=== PATIENT | male | born 1965 | race Caucasian/White ===

== ENCOUNTER 2016-07-28 09:47 | Emergency (ER) | payer MEDICAID ==
[2015-09-13 11:06] VITALS: BMI 24.4
[~2016-07-28 09:47] MED LIST: LIBRIUM25 MG PO; TOPROL XL25 MG PO; VITAMIN B-1100 M1 PO
== END 2016-07-28 10:55 | disposition home or self-care (01) ==
LOC: D.ER 09:47
DX: L71.9 Rosacea, unspecified (principal); L21.9 Seborrheic dermatitis, unspecified; R25.1 Tremor, unspecified; F41.9 Anxiety disorder, unspecified

== ENCOUNTER → 2016-11-14 12:27 | Outpatient (CLI) | payer MEDICAID ==
[2015-09-13 11:06] VITALS: BMI 24.4
== END | disposition home or self-care (01) ==
LOC: D.CT 12:27
DX: R26.9 Unspecified abnormalities of gait and mobility (principal)

== ENCOUNTER → 2016-11-29 08:07 | Outpatient (CLI) | payer MEDICAID ==
[2015-09-13 11:06] VITALS: BMI 24.4
== END | disposition home or self-care (01) ==
LOC: D.US 08:00
DX: R94.5 Abnormal results of liver function studies (principal)

== ENCOUNTER 2017-02-20 10:36 | Emergency (ER) | payer MEDICAID ==
[2015-09-13 11:06] VITALS: BMI 24.4
[2017-02-20 11:20] LABS: BASOPHILS 0.2 % (0-2); EOSINOPHILS 0.2 % (0-7); HEMATOCRIT 43.6 % (42.0-54.0); HEMOGLOBIN 15.3 g/dL (13.5-17.5); IMMATURE GRANULOCYTES 0.2 % (0-5); LYMPHOCYTES 7.4 % (15-50); MCH 36.1 pg (26.0-34.0); MCHC 35.1 g/dL (31.0-37.0); MCV 102.8 fL (80.0-100.0); MEAN PLATELET VOLUME 10.4 fL (7.4-10.4); MONOCYTES 11.8 % (2-11); NEUTROPHILS 80.2 % (40-80); RBC 4.24 10x6/uL (4.20-6.10); RDW 12.4 % (11.5-14.5); WBC 5.7 10x3/uL (4.8-10.8)
[2017-02-20 11:21] LABS: PLATELET COUNT 82 10x3/uL (130-400)
[2017-02-20 11:33] LABS: ALBUMIN 4.1 g/dL (3.4-5.0); ALKALINE PHOSPHATASE 105 U/L (46-116); ALT (SGPT) 94 U/L (10-68); AMYLASE - SERUM 43 U/L (25-115); BILIRUBIN - TOTAL 1.53 mg/dL (0.2-1.3); CALC OSMOLALITY 268 mosm/kg (275-300); CALCIUM 9.9 mg/dL (8.5-10.1); CARBON DIOXIDE 27.8 mmol/L (21.0-32.0); CHLORIDE - SERUM 96 mmol/L (98-107); CREATININE - SERUM 0.9 mg/dL (0.6-1.3); GLUCOSE 139 mg/dL (74-106); LIPASE 244 U/L (73-393); MAGNESIUM - SERUM 1.9 mg/dL (1.8-2.4); POTASSIUM - SERUM 4.1 mmol/L (3.5-5.1); PROTEIN - SERUM 7.8 g/dL (6.4-8.2); SODIUM 134 mmol/L (136-145); UREA NITROGEN 9 mg/dL (7-18); eGFR NON AFRICAN AMERICAN > 90 mL/min (90-120)
[2017-02-20 12:25] LABS: PLATELET ESTIMATE DECREASED
[2017-02-20 12:49] LABS: UDS - AMPHET NEGATIVE QUAL (NEGATIVE); UDS - BARB NEGATIVE QUAL (NEGATIVE); UDS - BENZO NEGATIVE QUAL (NEGATIVE); UDS - COCAINE NEGATIVE QUAL (NEGATIVE); UDS - OPIATE NEGATIVE QUAL (NEGATIVE); UDS - PCP NEGATIVE QUAL (NEGATIVE); UDS - THC NEGATIVE QUAL (NEGATIVE)
[2017-02-20 13:03] LABS: APPEARANCE CLEAR (CLEAR); BACTERIA FEW /hpf (NONE SEEN); BILIRUBIN NEGATIVE (NEGATIVE); COLOR DK YELLOW (YELLOW); EPITHELIAL CELLS OCC /hpf (0-5); GLUCOSE NEGATIVE (NEGATIVE); HYALINE CAST 0-5 /lpf (NONE SEEN); KETONE MODERATE mg/dL (NEGATIVE); MUCUS <1+ /lpf (NONE SEEN); NITRITE NEGATIVE (NEGATIVE); PROTEIN NEGATIVE (NEGATIVE); RED CELLS - URINE RARE /hpf (0-5); WHITE CELLS - URINE RARE /hpf (0-5)
== END 2017-02-20 14:50 | disposition home or self-care (01) ==
LOC: D.ER 10:36
PROVIDERS: Family Medicine
DX: F10.10 Alcohol abuse, uncomplicated (principal); F10.231 Alcohol dependence with withdrawal delirium; F17.200 Nicotine dependence, unspecified, uncomplicated

== ENCOUNTER 2017-09-23 23:42 | Emergency (ER) | payer MEDICAID ==
[2015-09-13 11:06] VITALS: BMI 24.4
[2017-09-24 00:49] LABS: BASOPHILS 0.1 % (0-2); EOSINOPHILS 0 % (0-7); HEMATOCRIT 42.4 % (42.0-54.0); HEMOGLOBIN 15.2 g/dL (13.5-17.5); IMMATURE GRANULOCYTES 0.4 % (0-5); LYMPHOCYTES 3.4 % (15-50); MCH 35.4 pg (26.0-34.0); MCHC 35.8 g/dL (31.0-37.0); MCV 98.8 fL (80.0-100.0); MEAN PLATELET VOLUME 11.6 fL (7.4-10.4); MONOCYTES 8.7 % (2-11); NEUTROPHILS 87.4 % (40-80); RBC 4.29 10x6/uL (4.20-6.10); RDW 13.6 % (11.5-14.5); WBC 7.6 10x3/uL (4.8-10.8)
[2017-09-24 01:00] LABS: PLATELET COUNT 49 10x3/uL (130-400)
[2017-09-24 01:08] LABS: ALKALINE PHOSPHATASE 87 U/L (46-116); ALT (SGPT) 118 U/L (10-68); AMYLASE - SERUM 39 U/L (25-115); BILIRUBIN - TOTAL 1.44 mg/dL (0.2-1.3); CALC OSMOLALITY 271 mosm/kg (275-300); CALCIUM 9.8 mg/dL (8.5-10.1); CARBON DIOXIDE 23.7 mmol/L (21.0-32.0); CHLORIDE - SERUM 94 mmol/L (98-107); CREATININE - SERUM 1.1 mg/dL (0.6-1.3); LIPASE 280 U/L (73-393); POTASSIUM - SERUM 3.6 mmol/L (3.5-5.1); PROTEIN - SERUM 7.8 g/dL (6.4-8.2); SODIUM 134 mmol/L (136-145); UREA NITROGEN 11 mg/dL (7-18); eGFR NON AFRICAN AMERICAN 75 mL/min (90-120)
[2017-09-24 01:12] LABS: GLUCOSE 191 mg/dL (74-106)
== END 2017-09-24 02:07 | disposition home or self-care (01) ==
LOC: D.ER 23:42
PROVIDERS: Family Medicine; Physician Assistant Medical
DX: F10.10 Alcohol abuse, uncomplicated (principal)

== ENCOUNTER → 2017-11-13 08:22 | Outpatient (CLI) | payer MEDICAID ==
[2015-09-13 11:06] VITALS: BMI 24.4
[~2017-11-13 08:22] MED LIST changes: +FOLIC ACID1 MG PO; +NICODERM C1 PATCH .1 TRANSDERM; +NIZORAL 2 % CRE15 GM TOPICAL; +PAROXETINE HCL10 MG PO
== END | disposition home or self-care (01) ==
LOC: D.US 08:22
DX: R94.5 Abnormal results of liver function studies (principal)

== ENCOUNTER 2017-11-27 08:50 | Inpatient (IN) | payer MEDICAID ==
[~2017-11-27] VITALS: Ht 185.4 cm; Wt 80.0 kg
[2017-11-27] VITALS (7 sets, daily range): BP systolic 144–165; BP diastolic 83–104
--- NOTE | ~2017-11-27 | CN ---
PATIENT NAME:NOEMI JONES MEDICAL RECORD: [id number] : 67 LOCATION:D. D.[id number] ADMIT DATE: 11/27/17 ACCOUNT: [id number] CONSULTING PHYSICIAN: JESSENIA ALATORRE MD REFERRING PHYSICIAN: SAM CINTRON MD DATE OF CONSULTATION: 11/30/2017 PSYCHIATRIC CONSULTATION IDENTIFYING DATA: The patient is 52 years old and he is admitted to the hospital on a voluntary basis. CHIEF COMPLAINT: None. HISTORY OF PRESENT ILLNESS: The patient currently is in the intensive care unit, delirious. He has a fluctuating level of consciousness, autonomic instability and apparently has told the staff that he drinks about a 6-pack of beer a day, but he clearly is in full-fledged autonomic hypersensitivity consistent with alcohol withdrawal delirium. His parents happened to be in the room when I see him. They are elderly and a very kind and obviously just concerned about their son, but they say that he is not drinking or is not drinking very much, which I think is just absolutely incorrect. I suspect it would be very to deceive them and all of his symptoms are consistent with a delirium, it has to be related to alcohol or sedative hypnotic withdrawal and the likely culprit is alcohol since he has a long history of alcoholism. The parents are concerned about longstanding lifelong issues with him having anger and difficulty adjusting and all sorts of long term care pharmacist problems that are certainly important, but the primary focus at this point is the alcohol withdrawal delirium, which needs to be addressed in addition to referring him to an appropriate setting once he is stabilized here. He has been to [facility] that would seem like a reasonable place for him to go once he is stabilized. MENTAL STATUS EXAMINATION: The patient is awake, alert, but not oriented. He thinks he is at home. He thinks the year is 1990, the month is June and the day is Monday. He does not understand that he is in the hospital. He says he may be drank 1 beer a week ago, but he is not sure. Memory, concentration, and abstraction testing was not possible because of his condition, but based on circumstances, it can be inferred to be severely impaired. ASSESSMENT: 1. Alcohol withdrawal delirium. 2. Alcoholism. PLAN: At this time, the patient needs to be treated supportively with substantial doses of benzodiazepine and antipsychotic medication. I will make some adjustments to the current medications he is receiving. Once medically stabilized, referral to inpatient residential alcohol treatment would be indicated. TRANSINT:[id number] Voice Confirmation ID: [id number] DOCUMENT ID: [id number] CONSULT REPORT [id number] NOEMI JONES PETER MD at 1223 CC: [id number] DICTATION DATE: 11/30/17 1439 SAMPLE DISPLAY PREPARER: 11/30/17 1505 [place] [address]
[~2017-11-27 08:50] MED LIST changes: -FOLIC ACID1 MG PO; -NICODERM C1 PATCH .1 TRANSDERM; -NIZORAL 2 % CRE15 GM TOPICAL; -PAROXETINE HCL10 MG PO
[2017-11-27 09:07] LABS: BASOPHILS 0.2 % (0-2); EOSINOPHILS 0.2 % (0-7); HEMATOCRIT 42.2 % (42.0-54.0); IMMATURE GRANULOCYTES 0.2 % (0-5); LYMPHOCYTES 17.4 % (15-50); MCH 35.9 pg (26.0-34.0); MCHC 35.5 g/dL (31.0-37.0); MEAN PLATELET VOLUME 11.4 fL (7.4-10.4); MONOCYTES 10.9 % (2-11); NEUTROPHILS 71.1 % (40-80); RBC 4.18 10x6/uL (4.20-6.10); RDW 12.8 % (11.5-14.5); WBC 5.7 10x3/uL (4.8-10.8)
[2017-11-27 09:08] LABS: PLATELET COUNT 59 10x3/uL (130-400)
[2017-11-27] MEDS ORDERED: FOLIC ACID1 MG PO (09:10)
[2017-11-27] MEDS ORDERED: PAROXETINE HCL10 MG PO (09:10)
[2017-11-27 09:32] LABS: ALBUMIN 4.3 g/dL (3.4-5.0); ALKALINE PHOSPHATASE 113 U/L (46-116); ALT (SGPT) 107 U/L (10-68); BILIRUBIN - TOTAL 1.23 mg/dL (0.2-1.3); CALC OSMOLALITY 270 mosm/kg (275-300); CALCIUM 9.8 mg/dL (8.5-10.1); CARBON DIOXIDE 20.3 mmol/L (21.0-32.0); CHLORIDE - SERUM 92 mmol/L (98-107); CREATININE - SERUM 0.9 mg/dL (0.6-1.3); POTASSIUM - SERUM 3.4 mmol/L (3.5-5.1); PROTEIN - SERUM 8.1 g/dL (6.4-8.2); SODIUM 136 mmol/L (136-145); UREA NITROGEN 6 mg/dL (7-18); eGFR NON AFRICAN AMERICAN > 90 mL/min (90-120)
[2017-11-27 09:33] LABS: GLUCOSE 121 mg/dL (74-106)
[2017-11-27 09:58] LABS: PLATELET ESTIMATE DECREASED
[2017-11-28] VITALS (20 sets, daily range): BP systolic 115–151; BP diastolic 70–94; BMI 22.6
[2017-11-28 06:18] LABS: BASOPHILS 0.2 % (0-2); HEMATOCRIT 41.6 % (42.0-54.0); HEMOGLOBIN 14.6 g/dL (13.5-17.5); IMMATURE GRANULOCYTES 0.2 % (0-5); LYMPHOCYTES 10.7 % (15-50); MCH 35.7 pg (26.0-34.0); MCHC 35.1 g/dL (31.0-37.0); MCV 101.7 fL (80.0-100.0); MEAN PLATELET VOLUME 12.5 fL (7.4-10.4); MONOCYTES 11.8 % (2-11); NEUTROPHILS 76.1 % (40-80); RBC 4.09 10x6/uL (4.20-6.10); RDW 12.8 % (11.5-14.5); WBC 4.8 10x3/uL (4.8-10.8)
[2017-11-28 06:19] LABS: PLATELET COUNT 44 10x3/uL (130-400)
[2017-11-28 06:35] LABS: ALBUMIN 3.8 g/dL (3.4-5.0); ALKALINE PHOSPHATASE 100 U/L (46-116); ALT (SGPT) 86 U/L (10-68); BILIRUBIN - TOTAL 1.79 mg/dL (0.2-1.3); CALCIUM 8.5 mg/dL (8.5-10.1); CHLORIDE - SERUM 96 mmol/L (98-107); MAGNESIUM - SERUM 2.5 mg/dL (1.8-2.4); PHOSPHOROUS 3.2 mg/dL (2.5-4.9); POTASSIUM - SERUM 3.1 mmol/L (3.5-5.1); PROTEIN - SERUM 7.1 g/dL (6.4-8.2); SODIUM 135 mmol/L (136-145)
[2017-11-28 06:37] LABS: CALC OSMOLALITY 264 mosm/kg (275-300); CREATININE - SERUM 0.6 mg/dL (0.6-1.3); GLUCOSE 62 mg/dL (74-106); UREA NITROGEN 4 mg/dL (7-18); eGFR NON AFRICAN AMERICAN > 90 mL/min (90-120)
[2017-11-29] VITALS (24 sets, daily range): BP systolic 101–153; BP diastolic 65–100; Ht 185.4 cm; Wt 80.0 kg
[2017-11-29 05:18] LABS: BASOPHILS 0.2 % (0-2); EOSINOPHILS 1.9 % (0-7); HEMATOCRIT 38.9 % (42.0-54.0); HEMOGLOBIN 13.5 g/dL (13.5-17.5); IMMATURE GRANULOCYTES 0.4 % (0-5); LYMPHOCYTES 10.3 % (15-50); MCH 35.4 pg (26.0-34.0); MCHC 34.7 g/dL (31.0-37.0); MCV 102.1 fL (80.0-100.0); MEAN PLATELET VOLUME 12.2 fL (7.4-10.4); MONOCYTES 11.3 % (2-11); NEUTROPHILS 75.9 % (40-80); RBC 3.81 10x6/uL (4.20-6.10); RDW 12.7 % (11.5-14.5); WBC 5.2 10x3/uL (4.8-10.8)
[2017-11-29 05:33] LABS: ALBUMIN 3.6 g/dL (3.4-5.0); ALKALINE PHOSPHATASE 92 U/L (46-116); ALT (SGPT) 75 U/L (10-68); CALC OSMOLALITY 262 mosm/kg (275-300); CARBON DIOXIDE 25.8 mmol/L (21.0-32.0); CHLORIDE - SERUM 96 mmol/L (98-107); CREATININE - SERUM 0.7 mg/dL (0.6-1.3); GLUCOSE 73 mg/dL (74-106); POTASSIUM - SERUM 3.3 mmol/L (3.5-5.1); PROTEIN - SERUM 6.9 g/dL (6.4-8.2); SODIUM 133 mmol/L (136-145); eGFR NON AFRICAN AMERICAN > 90 mL/min (90-120)
[2017-11-29 05:42] LABS: UREA NITROGEN 6 mg/dL (7-18)
[2017-11-29 05:47] LABS: PLATELET COUNT 45 10x3/uL (130-400)
[2017-11-30] VITALS (15 sets, daily range): BP systolic 110–151; BP diastolic 36–97
[2017-11-30 04:13] LABS: BASOPHILS 0.2 % (0-2); EOSINOPHILS 1.9 % (0-7); HEMATOCRIT 36.9 % (42.0-54.0); IMMATURE GRANULOCYTES 0.4 % (0-5); LYMPHOCYTES 15.4 % (15-50); MCH 35.7 pg (26.0-34.0); MCHC 35.2 g/dL (31.0-37.0); MCV 101.4 fL (80.0-100.0); MEAN PLATELET VOLUME 11.5 fL (7.4-10.4); MONOCYTES 14.7 % (2-11); NEUTROPHILS 67.4 % (40-80); RBC 3.64 10x6/uL (4.20-6.10); RDW 12.6 % (11.5-14.5); WBC 4.7 10x3/uL (4.8-10.8)
[2017-11-30 04:25] LABS: PLATELET COUNT 64 10x3/uL (130-400)
[2017-11-30 04:40] LABS: ALBUMIN 3.3 g/dL (3.4-5.0); ALKALINE PHOSPHATASE 92 U/L (46-116); ALT (SGPT) 83 U/L (10-68); BILIRUBIN - TOTAL 1.48 mg/dL (0.2-1.3); CALC OSMOLALITY 264 mosm/kg (275-300); CALCIUM 7.9 mg/dL (8.5-10.1); CARBON DIOXIDE 24.3 mmol/L (21.0-32.0); CHLORIDE - SERUM 97 mmol/L (98-107); CREATININE - SERUM 0.6 mg/dL (0.6-1.3); GLUCOSE 78 mg/dL (74-106); MAGNESIUM - SERUM 2.2 mg/dL (1.8-2.4); PROTEIN - SERUM 6.7 g/dL (6.4-8.2); SODIUM 134 mmol/L (136-145); UREA NITROGEN 6 mg/dL (7-18); eGFR NON AFRICAN AMERICAN > 90 mL/min (90-120)
[2017-12-01 02:11] VITALS: BP 148/77
[2017-12-01 04:00] VITALS: BP 128/74
[2017-12-01 06:30] LABS: ALBUMIN 3.4 g/dL (3.4-5.0); ALKALINE PHOSPHATASE 86 U/L (46-116); ALT (SGPT) 94 U/L (10-68); BILIRUBIN - TOTAL 1.25 mg/dL (0.2-1.3); CALC OSMOLALITY 268 mosm/kg (275-300); CALCIUM 8.3 mg/dL (8.5-10.1); CARBON DIOXIDE 27.7 mmol/L (21.0-32.0); CHLORIDE - SERUM 101 mmol/L (98-107); CREATININE - SERUM 0.7 mg/dL (0.6-1.3); GLUCOSE 88 mg/dL (74-106); POTASSIUM - SERUM 3.4 mmol/L (3.5-5.1); PROTEIN - SERUM 6.8 g/dL (6.4-8.2); SODIUM 136 mmol/L (136-145); UREA NITROGEN 6 mg/dL (7-18); eGFR NON AFRICAN AMERICAN > 90 mL/min (90-120)
[2017-12-01 06:50] LABS: BASOPHILS 0.5 % (0-2); HEMATOCRIT 38.5 % (42.0-54.0); HEMOGLOBIN 13.2 g/dL (13.5-17.5); IMMATURE GRANULOCYTES 0.5 % (0-5); LYMPHOCYTES 17.7 % (15-50); MCH 35.1 pg (26.0-34.0); MCHC 34.3 g/dL (31.0-37.0); MCV 102.4 fL (80.0-100.0); MONOCYTES 18.8 % (2-11); NEUTROPHILS 59.5 % (40-80); RBC 3.76 10x6/uL (4.20-6.10); RDW 12.7 % (11.5-14.5); WBC 4.4 10x3/uL (4.8-10.8)
[2017-12-01 06:52] LABS: PLATELET COUNT 83 10x3/uL (130-400)
[2017-12-01 08:39] VITALS: BP 132/61
[2017-12-01 11:45] VITALS: BP 126/48
[2017-12-01 15:55] VITALS: BP 138/72
[2017-12-01 21:20] VITALS: BP 121/81
[2017-12-02 02:35] VITALS: BP 141/95
[2017-12-02 06:05] LABS: BASOPHILS 0.3 % (0-2); EOSINOPHILS 2.1 % (0-7); HEMATOCRIT 38.2 % (42.0-54.0); HEMOGLOBIN 13.2 g/dL (13.5-17.5); IMMATURE GRANULOCYTES 0.3 % (0-5); LYMPHOCYTES 23.5 % (15-50); MCH 35.7 pg (26.0-34.0); MCHC 34.6 g/dL (31.0-37.0); MCV 103.2 fL (80.0-100.0); MEAN PLATELET VOLUME 10.4 fL (7.4-10.4); MONOCYTES 20.6 % (2-11); NEUTROPHILS 53.2 % (40-80); RDW 12.9 % (11.5-14.5); WBC 3.7 10x3/uL (4.8-10.8)
[2017-12-02 06:14] LABS: PLATELET COUNT 107 10x3/uL (130-400)
[2017-12-02 06:58] LABS: ALBUMIN 3.3 g/dL (3.4-5.0); ALKALINE PHOSPHATASE 90 U/L (46-116); ALT (SGPT) 92 U/L (10-68); BILIRUBIN - TOTAL 0.96 mg/dL (0.2-1.3); CALC OSMOLALITY 273 mosm/kg (275-300); CALCIUM 8.2 mg/dL (8.5-10.1); CARBON DIOXIDE 27.2 mmol/L (21.0-32.0); CHLORIDE - SERUM 103 mmol/L (98-107); CREATININE - SERUM 0.6 mg/dL (0.6-1.3); GLUCOSE 87 mg/dL (74-106); POTASSIUM - SERUM 3.4 mmol/L (3.5-5.1); PROTEIN - SERUM 6.7 g/dL (6.4-8.2); SODIUM 139 mmol/L (136-145); UREA NITROGEN 5 mg/dL (7-18); eGFR NON AFRICAN AMERICAN > 90 mL/min (90-120)
[2017-12-02 08:14] VITALS: BP 134/82
[2017-12-02 09:13] LABS: FOLATE (FOLIC ACID) - SERUM >20.0 ng/mL (>3.0)
[2017-12-02 12:24] VITALS: BP 130/70
[2017-12-02 16:04] VITALS: BP 131/79
[2017-12-02 22:50] VITALS: BP 137/79
[2017-12-03 05:44] LABS: BASOPHILS 0.2 % (0-2); EOSINOPHILS 2.7 % (0-7); HEMATOCRIT 35.7 % (42.0-54.0); HEMOGLOBIN 12.2 g/dL (13.5-17.5); IMMATURE GRANULOCYTES 0.2 % (0-5); LYMPHOCYTES 26.2 % (15-50); MCH 35.2 pg (26.0-34.0); MCHC 34.2 g/dL (31.0-37.0); MCV 102.9 fL (80.0-100.0); MEAN PLATELET VOLUME 10.4 fL (7.4-10.4); MONOCYTES 22.5 % (2-11); NEUTROPHILS 48.2 % (40-80); RBC 3.47 10x6/uL (4.20-6.10); RDW 12.8 % (11.5-14.5); WBC 4.1 10x3/uL (4.8-10.8)
[2017-12-03 05:47] LABS: PLATELET COUNT 148 10x3/uL (130-400)
[2017-12-03 06:28] LABS: ALBUMIN 3.2 g/dL (3.4-5.0); ALKALINE PHOSPHATASE 79 U/L (46-116); ALT (SGPT) 87 U/L (10-68); BILIRUBIN - TOTAL 0.83 mg/dL (0.2-1.3); CALC OSMOLALITY 268 mosm/kg (275-300); CALCIUM 8.4 mg/dL (8.5-10.1); CARBON DIOXIDE 25.8 mmol/L (21.0-32.0); CHLORIDE - SERUM 103 mmol/L (98-107); CREATININE - SERUM 0.7 mg/dL (0.6-1.3); GLUCOSE 96 mg/dL (74-106); POTASSIUM - SERUM 3.8 mmol/L (3.5-5.1); PROTEIN - SERUM 6.5 g/dL (6.4-8.2); SODIUM 136 mmol/L (136-145); UREA NITROGEN 4 mg/dL (7-18); eGFR NON AFRICAN AMERICAN > 90 mL/min (90-120)
[2017-12-03 08:00] VITALS: BP 132/84
[2017-12-03 08:06] VITALS: BP 119/87
[2017-12-03 11:58] VITALS: BP 118/60
[2017-12-03 17:03] VITALS: BP 120/62
[2017-12-04 00:11] VITALS: BP 131/82
[2017-12-04 04:00] VITALS: BP 117/84
[2017-12-04 07:00] VITALS: BP 139/87
[2017-12-04 17:00] VITALS: BP 125/83
[2017-12-04 23:37] VITALS: BP 139/86
[2017-12-05 05:00] VITALS: BP 128/88
[2017-12-05 06:21] LABS: HEMATOCRIT 39.3 % (42.0-54.0); HEMOGLOBIN 13.4 g/dL (13.5-17.5); MCH 35.3 pg (26.0-34.0); MCHC 34.1 g/dL (31.0-37.0); MCV 103.4 fL (80.0-100.0); MEAN PLATELET VOLUME 10.3 fL (7.4-10.4); RDW 12.8 % (11.5-14.5); WBC 4.9 10x3/uL (4.8-10.8)
[2017-12-05 06:22] LABS: PLATELET COUNT 239 10x3/uL (130-400)
[2017-12-05 06:33] LABS: CALC OSMOLALITY 274 mosm/kg (275-300); CALCIUM 8.3 mg/dL (8.5-10.1); CHLORIDE - SERUM 104 mmol/L (98-107); CREATININE - SERUM 0.6 mg/dL (0.6-1.3); GLUCOSE 98 mg/dL (74-106); POTASSIUM - SERUM 3.8 mmol/L (3.5-5.1); SODIUM 139 mmol/L (136-145); UREA NITROGEN 3 mg/dL (7-18); eGFR NON AFRICAN AMERICAN > 90 mL/min (90-120)
[2017-12-05 07:40] LABS: ANISOCYTOSIS OCC; BASOPHILS 1 % (0-2); EOSINOPHILS 8 % (0-7); LYMPHOCYTES 20 % (15-50); MONOCYTES 19 % (2-11); NEUTROPHILS 49 % (40-80); PLATELET ESTIMATE NORMAL
[2017-12-05 08:02] VITALS: BP 129/82
[2017-12-05 11:38] VITALS: BP 135/88
[2017-12-05 15:40] VITALS: BP 117/77
[2017-12-05 22:16] VITALS: BP 140/97
[2017-12-06 05:20] LABS: BASOPHILS 0.4 % (0-2); EOSINOPHILS 2.2 % (0-7); HEMATOCRIT 40.4 % (42.0-54.0); HEMOGLOBIN 13.9 g/dL (13.5-17.5); IMMATURE GRANULOCYTES 0.5 % (0-5); LYMPHOCYTES 23.3 % (15-50); MCH 35.7 pg (26.0-34.0); MCHC 34.4 g/dL (31.0-37.0); MCV 103.9 fL (80.0-100.0); MEAN PLATELET VOLUME 10.1 fL (7.4-10.4); MONOCYTES 22.6 % (2-11); PLATELET COUNT 271 10x3/uL (130-400); RBC 3.89 10x6/uL (4.20-6.10); RDW 12.7 % (11.5-14.5); WBC 5.5 10x3/uL (4.8-10.8)
[2017-12-06 05:43] LABS: CALC OSMOLALITY 274 mosm/kg (275-300); CALCIUM 8.6 mg/dL (8.5-10.1); CARBON DIOXIDE 29.1 mmol/L (21.0-32.0); CHLORIDE - SERUM 103 mmol/L (98-107); CREATININE - SERUM 0.7 mg/dL (0.6-1.3); GLUCOSE 93 mg/dL (74-106); POTASSIUM - SERUM 4.3 mmol/L (3.5-5.1); SODIUM 139 mmol/L (136-145); eGFR NON AFRICAN AMERICAN > 90 mL/min (90-120)
[2017-12-06 05:45] LABS: UREA NITROGEN 5 mg/dL (7-18)
[2017-12-06 06:50] VITALS: BP 117/79
[2017-12-06] MEDS ORDERED: NIZORAL 2 % CRE15 GM TOPICAL (10:08)
[2017-12-06] MEDS ORDERED: NICODERM C1 PATCH .1 TRANSDERM (10:08)
== END 2017-12-06 13:50 | disposition home or self-care (01) | DRG 896 ==
LOC: D.ER 08:50 → D.EDHOLD 13:02 → D.ICU 13:02 → D.M2 11-30 16:02
PROVIDERS: Family Medicine; Family Medicine Adult Medicine; Internal Medicine Hematology & Oncology; Internal Medicine Nephrology
DX: F10.239 Alcohol dependence with withdrawal, unspecified (principal); G93.40 Encephalopathy, unspecified; R40.2363 Coma scale, best motor response, obeys commands, at hospital admission; R40.2143 Coma scale, eyes open, spontaneous, at hospital admission; R40.2243 Coma scale, best verbal response, confused conversation, at hospital admission; D69.59 Other secondary thrombocytopenia; E87.6 Hypokalemia; F17.203 Nicotine dependence unspecified, with withdrawal